=== PATIENT | male | born 1980 | race American Indian/Alaskan Native ===

== ENCOUNTER 2019-09-21 01:18 | Emergency (ER) | payer SELFPAY ==
[2019-09-21] MEDS ORDERED: hydrOXYzine HCl 50 MG/ML SDV IM ONE (01:45)
--- NOTE | 2019-09-21 01:49 | EDM.PDOC ---
ED HPI GENERAL MEDICAL PROBLEM - General Stated Complaint: DIZZY Time Seen by Provider: 09/21/19 01:46 Source of Information: Reports: Patient History Limitations: Reports: Intoxication - History of Present Illness INITIAL COMMENTS - FREE TEXT/NARRATIVE: Complaint of feeling dizzy,vomiting,anxiety. Has been usuing mth all week,and alcohol. A friend gave him a small tab of Suboxone,to which he believes he is reacting.He has a h/o asthma,and Pre-Diabetes. - Related Data Allergies Allergy/AdvReac Type Severity Reaction Status Date / Time No Known Allergies Allergy Verified 09/21/19 01:45 Home Meds: Home Meds Albuterol Sulfate [Albuterol Sulfate Hfa] 2 puff INH ASDIRECTED 09/21/19 [ History] ED ROS GENERAL - Review of Systems Review Of Systems: Comprehensive ROS is negative, except as noted in HPI. ED EXAM, GI/ABD - Physical Exam Exam: See Below Exam Limited By: No Limitations General Appearance: Alert, Anxious Ears: Normal External Exam Throat/Mouth: Normal Inspection Head: Atraumatic Neck: Normal Inspection Respiratory/Chest: No Respiratory Distress Cardiovascular: Normal Peripheral Pulses, Regular Rate, Rhythm Extremities: Normal Inspection Neurological: Alert, Oriented, CN II-XII Intact Psychiatric: Anxious Skin Exam: Warm Course - Vital Signs Last Recorded V/S: Last Vital Signs Temp 98 F 09/21/19 01:25 Pulse 86 09/21/19 01:25 Resp 16 09/21/19 01:25 BP 140/86 09/21/19 01:35 Pulse Ox 93 L 09/21/19 01:25 - Orders/Labs/Meds Labs: Laboratory Tests 09/21/19 09/21/19 Range/Units 01:38 01:38 WBC 14.1 H (4.5-12.0) X10-3/uL RBC 5.83 H (4.30-5.75) x10(6)uL Hgb 16.7 (13.5-17.8) g/dL Hct 49.6 (30.0-51.3) % MCV 85.1 (80-96) fL MCH 28.6 (27.7-33.6) pg MCHC 33.6 (32.2-35.4) g/dL RDW 14.1 (11.5-15.5) % Plt Count 348 (125-369) X10(3)uL MPV 7.1 L (7.4-10.4) fL Neut % (Auto) 59.7 (46-82) % Lymph % (Auto) 25.4 (13-37) % Crenshaw % (Auto) 5.3 (4-12) % Eos % (Auto) 9 H (1.0-5.0) % Baso % (Auto) 1 (0-2) % Neut # (Auto) 8.4 H (1.6-8.3) # Lymph # (Auto) 3.6 (0.6-5.0) # Crenshaw # (Auto) 0.7 (0.0-1.3) # Eos # (Auto) 1.3 H (0.0-0.8) # Baso # (Auto) 0.1 (0.0-0.2) # Sodium 142 (135-145) mmol/L Potassium 3.7 (3.5-5.3) mmol/L Chloride 104 (100-110) mmol/L Carbon Dioxide 27 (21-32) mmol/L BUN 16 (7-18) mg/dL Creatinine 1.0 (0.70-1.30) mg/dL Est Cr Clr Drug Dosing TNP Estimated GFR (MDRD) > 60 (>60) BUN/Creatinine Ratio 16.0 (9-20) Glucose 137 H (80-116) mg/dL Calcium 8.6 (8.6-10.2) mg/dL Meds: Medications Discontinued Medications Generic Name Dose Route Start Last Admin Trade Name Freq PRN Reason Stop Dose Admin Hydroxyzine HCl 100 mg 09/21/19 01:45 09/21/19 01:51 Vistaril IM 09/21/19 01:46 100 mg ONETIME ONE Administration Departure - Departure Time of Disposition: 06:42 Disposition: Home, Self-Care 01 Condition: Good Clinical Impression: Anxiety, Intoxication by drug - Discharge Information Instructions: Vomiting, Adult Referrals: PCP,None [Primary Care Provider] - 09/22/19 Forms: ED Department Discharge Additional Instructions: Returnto ED with any worsening symptoms Sepsis Event Note - Focused Exam Vital Signs: Vital Signs Temp Pulse Resp BP Pulse Ox 09/21/19 01:35 140/86 09/21/19 01:25 98 F 86 16 142/101 H 93 L Date Exam was Performed: 09/21/19 Time Exam was Performed: 06:42 - Problem List & Annotations (1) Intoxication by drug SNOMED Code(s): 7264453 Code(s): F19.929 - OTH PSYCHOACTIVE SUBSTANCE USE, UNSP WITH INTOXICATION, UNSP Status: Acute (2) Anxiety SNOMED Code(s): 01102108 Code(s): F41.9 - ANXIETY DISORDER, UNSPECIFIED Status: Acute (3) Vomiting SNOMED Code(s): 156926363 Code(s): R11.10 - VOMITING, UNSPECIFIED Status: Acute - Problem List Review Problem List Initiated/Reviewed/Updated: Yes - Assessment/Plan Plan: Vistaril 100 mg IM. DC home.Poison Control tongue and groove machine feeder agree with plan, supportive therapy.
== END 2019-09-21 01:55 | disposition home or self-care (01) ==
LOC: FB.ED 01:18
DX: R11.10 Vomiting, unspecified (principal); F41.9 Anxiety disorder, unspecified; F10.129 Alcohol abuse with intoxication, unspecified; F15.129 Other stimulant abuse with intoxication, unspecified; J45.909 Unspecified asthma, uncomplicated
CPT/HCPCS: 36415; 80048; 85025; 96372; 99283; 99284; J3410